=== PATIENT | female | born 1995 | race African-American/Black ===

== ENCOUNTER 2022-01-31 07:59 | Inpatient (IN) | payer MEDICAID ==
[~2022-01-31] VITALS: Ht 160 cm; Wt 77.1 kg
[~2022-01-31 07:59] MED LIST: IBU800T
[2022-01-31] MEDS ORDERED: LACT. RINGERS/OXYTOCIN 20UNITS 1,000 ML IV ONE (08:44)
[2022-01-31] MEDS ORDERED: LIDOCAINE 2%HCL (LOCAL ANESTH.) INJ 10ml MDV ONE (08:44)
[2022-01-31] MEDS ORDERED: METHYLERGONOVINE MALEATE 0.2 MG/ML AMP IM ONE (08:44)
[2022-01-31] MEDS ORDERED: miSOPROStol 100 mcg TAB ONE (08:44)
[2022-01-31] MEDS ORDERED: WITCH HAZEL-GLYCERIN PAD TOP PRN (08:45)
[2022-01-31] MEDS ORDERED: LIDOCAINE 2%HCL (LOCAL ANESTH.) INJ 10ml MDV IJ PRN (08:45)
[2022-01-31] MEDS ORDERED: LACTATED RINGER'S 1,000 ML IV SCH (08:45)
[2022-01-31] MEDS ORDERED: PROMETHAZINE HCL 25 MG/ML 1ML IV PRN (08:45)
[2022-01-31] MEDS ORDERED: DERMOPLAST 60ML BOTTLE TOP PRN (08:45)
[2022-01-31] MEDS ORDERED: BUTORPHANOL TARTRATE 2 MG/1 ML VIAL IV PRN ×2 (08:45)
[2022-01-31] MEDS ORDERED: PHISODERM TOP SOLN 240ML BTL TOP PRN (08:45)
[2022-01-31] MEDS ORDERED: ONDANSETRON ODT 4 MG TAB PO PRN (09:45)
[2022-01-31] MEDS ORDERED: IBUPROFEN 600 MG TAB PO PRN (09:45)
[2022-01-31] MEDS ORDERED: ACETAMINOPHEN 325 MG TAB PO PRN (09:45)
[2022-01-31 10:15] LABS: Urine Blood 2+ /uL (Negative); Urine Specific Gravity 1.017 (1.001-1.035)
[2022-01-31] MEDS ORDERED: LACT. RINGERS/OXYTOCIN 20UNITS 500 ML IV ONE (10:15)
[2022-01-31 10:17] LABS: Urine Bacteria NONE SEEN /hpf (None Seen); Urine Blood 2+ /uL (Negative); Urine Budding Yeast OCCASIONAL /hpf (None Seen); Urine Specific Gravity 1.017 (1.001-1.035); Urine WBC 5 /hpf (0 - 5); Urine WBC Clumps PRESENT /hpf (None Seen)
[2022-01-31 10:29] LABS: Alcohol, Urine < 3.0 mg/dL (0-10); Amphetamine Screen, Urine NEGATIVE (NEGATIVE); Barbiturate Scree,Urine NEGATIVE (NEGATIVE); Benzodiazephine Screen, Urine NEGATIVE (NEGATIVE); Cannabinoid Screen, Urine POSITIVE (NEGATIVE); Cocaine Screen, Urine NEGATIVE (NEGATIVE); Phencyclidine Screen, Urine NEGATIVE (NEGATIVE)
[2022-01-31 10:33] LABS: Basophils # (auto) 0 10 ^3/uL (0-0.2); Basophils % (auto) 0.2 % (0.0-2.0); Eosinophils # (auto) 0 10 ^3/uL (0-0.8); Eosinophils % (auto) 0.1 % (0.0-7.0); Hematocrit 31.9 % (36.0-46.0); Hemoglobin 10.8 g/dL (12.2-16.2); Lymphocytes % (auto) 7.7 % (10.0-50.0); Mean Corpuscular Hemoglobin 28.3 pg (28.0-32.0); Mean Corpuscular Hgb Conc. 33.8 g/dL (32.0-36.0); Mean Corpuscular Volume 83.9 fL (80.0-100.0); Monocytes # (auto) 0.5 10 ^3/uL (0-1.3); Monocytes % (auto) 3.7 % (0.0-12.0); Neutrophils # (auto) 10.9 10 ^3/uL (1.6-8.6); Neutrophils % (auto) 88.3 % (37.0-80.0); White Blood Cell 12.4 10^3/uL (4.4-10.8)
[2022-01-31 10:37] LABS: Opiate Scree,Urine NEGATIVE (NEGATIVE)
[2022-01-31 10:49] LABS: Albumin 2.6 g/dL (3.4-5.0); Calcium 8.6 mg/dL (8.5-10.1); Potassium 3.9 mmol/L (3.5-5.1); Uric Acid 5.3 mg/dL (2.6-6.0)
[2022-01-31 10:52] LABS: BUN/Creatinine Ratio 11.1; Bilirubin, Total 0.2 mg/dL (0.2-1.0)
[2022-01-31 10:55] LABS: INR 0.91 (0.9-1.15); Partial Thromboplastin Time 28.2 sec (24.6-33.4)
[2022-01-31 15:00] VITALS: BP 128/74
[2022-01-31 16:30] VITALS: BP 117/60
[2022-01-31 19:00] VITALS: BP 127/84
[2022-01-31] MEDS ORDERED: DOCUSATE SOD 100 MG CAP PO SCH (22:00)
[2022-01-31 23:00] VITALS: BP 112/69
[2022-02-01 03:25] VITALS: BP 124/86
[2022-02-01 07:15] VITALS: BP 127/87
[2022-02-01 11:00] VITALS: BP 119/87
[2022-02-02 07:06] LABS: RPR Non Reactive (Non Reactive)
== END 2022-02-01 13:23 | disposition home or self-care (01) | DRG 560 ==
LOC: LDRP 07:59 → OBSVTOIN 07:59 → LDRP 17:53
PROVIDERS: ADMIT Obstetrics & Gynecology; ATTEND Obstetrics & Gynecology
PROC: 10E0XZZ Delivery of Products of Conception, External Approach (ICD-10-PCS; principal; 2022-01-31)
DX: O62.3 Precipitate labor (principal); Z37.0 Single live birth; Z20.822 Contact with and (suspected) exposure to COVID-19; Z3A.39 39 weeks gestation of pregnancy
CPT/HCPCS: 36415; 59025; 59409; 80053; 80307; 81001; 81002; 81003; 84550; 85025; 85610; 85730; 86592; 86703; 86850; 86900; 86901; 87340; 87426; 94760; 96360; 96361; 96365; 96366; G0378; J2001; J2590